=== PATIENT | female | born 1950 | race Caucasian/White ===

== ENCOUNTER 2020-12-21 23:35 | Inpatient (IN) ==
[2020-12-22] MEDS ORDERED: DOCUSATE SODIUM 100 MG CAPSULE PO PRN (05:16)
[2020-12-22] MEDS ORDERED: ONDANSETRON 4 MG/2 ML VIAL IV PRN (05:16)
[2020-12-22] MEDS ORDERED: ALBUTEROL 2.5 MG/3 ML NEB RESP TX PRN (05:16)
[2020-12-22] MEDS ORDERED: NOREPINEPHRINE 4 MG/4 ML VIAL IV ONE (05:35)
[2020-12-22] MEDS ORDERED: GLUCAGON 1 MG VIAL IM PRN ×2 (05:36→07:01)
[2020-12-22] MEDS ORDERED: DEXTROSE 50% 25 GM/50 ML VIAL IV PRN ×4 (05:36→07:01)
[2020-12-22 05:39] LABS: ABG Base Excess -22.2 MMOL/L (-2.5-2.5); ABG HCO3 8.2 MMOL/L (20-26); ABG Oxygen Saturation 97.9 % (95-100); ABG TCO2 5.1 MMOL/L (23-27)
[2020-12-22 05:41] LABS: ABG PCO2 14.7 MM HG (35-48); ABG PH 7.168 (7.35-7.45)
[2020-12-22] MEDS: NOREPINEPHRINE 8 MG in SODIUM CHLORIDE 0.9% 242 ML IV SCH (05:45)
[2020-12-22] MEDS ORDERED: SODIUM BICARB INJ 100 MEQ in SODIUM CHLORIDE 0.45% 1,000 ML IV SCH (06:00)
[2020-12-22 06:12] LABS: Basophils % 0.1 % (0.0-0.8); Eosinophils % 0.1 % (0.00-10.9); Hematocrit 25.7 VOL% (35.7-47.0); Hemoglobin 7.8 GM/DL (12.0-16.0); Immature Granulocytes % 0.6 %; Immature Granulocytes Absolute 0.11 #; Lymphocytes # 0.4 10*3/uL (1.4-4.0); Lymphocytes % 2.2 % (21.3-54.2); Mean Corpuscular HGB Conc 30.4 GM/DL (32-36); Mean Corpuscular Volume 92.8 FL (87-102); Mean Platelet Volume 9.6 FL (9.6-12.0); Monocytes % 2.7 % (1.7-12.7); Neutrophils % 94.3 % (38.7-73.9); Platelet Count 484 T/CUMM (130-400); Red Blood Count 2.77 MC/CUMM (3.8-5.5); Red Cell Distribution Width 16.7 % (9.3-17.3); White Blood Count 17.6 T/CUMM (4-12)
[2020-12-22 06:39] LABS: Alanine Aminotransferase < 9 U/L (13-56); Albumin 1.8 G/DL (3.4-5.0); Alkaline Phosphatase 82 U/L (45-117); Aspartate Amino Transferase 17 U/L (0-37); Blood Urea Nitrogen 93 MG/DL (7-18); Calcium 7.7 MG/DL (8.5-10.1); Carbon Dioxide 5 MMOL/L (21-32); Estimated Glom Filtration Rate 12 ML/MIN; Glucose 147 MG/DL (74-106); Osmolality,Calculated 297.4 MOS/KG (273-304); Potassium 4.5 MMOL/L (3.5-5.1); Sodium 133 MMOL/L (136-145); Total Protein 6.2 G/DL (6.4-8.3)
[2020-12-22] MEDS ORDERED: SODIUM CHLORIDE 0.9% 1,000 ML IV ONE (07:01)
[2020-12-22] MEDS ORDERED: SODIUM PHOSPHATE IV PRN (07:01)
[2020-12-22] MEDS ORDERED: MAGNESIUM SULF RIDER 4 GM in PREMIX 1 EACH IV PRN (07:01)
[2020-12-22] MEDS ORDERED: SODIUM BICARB INJ 100 MEQ in STERILE WATER INJ 400 ML IV PRN (07:01)
[2020-12-22] MEDS ORDERED: SODIUM CHLORIDE 0.9% IV PRN (07:01)
[2020-12-22] MEDS ORDERED: INSULIN REGULAR 100 UNIT/ML IV ONE (07:01)
[2020-12-22] MEDS ORDERED: SODIUM BICARBONATE 50 MEQ/50 ML VIAL IV ONE (07:05)
[2020-12-22 07:26] LABS: INR 1.1; PT Patient Result 11.8 SECS (9.8-11.9)
[2020-12-22] MEDS ORDERED: INSULIN LISPRO 100 UNIT/ML SUBCUT SCH (07:30)
[2020-12-22 07:44] LABS: Band Neutrophils 12 % (0-10); Eosinophils 1 % (0-10); Lymphocytes 2 % (20-55); Platelet Estimate Normal; Segmented Neutrophils 80 % (50-85); Total Cells Counted 100
[2020-12-22 07:45] LABS: Anisocytosis 1+; Burr Cells 2+
[2020-12-22 07:50] LABS: Bilirubin,Urine Negative (Negative); Blood, Urine Small mg/dL (Negative); Glucose,Urine (UA) 50 mg/dL (Negative); Hyaline Casts,Urine 70 /LPF (0-3); Ketones,Urine 5 mg/dL (Negative); Nitrite,Urine Negative (Negative); Protein,Urine 100 MG/DL; Squamous Epithelial Cell,Urine Few /HPF (0-10); Urine Appearance CLOUDY (Clear); Urine Color Yellow (Yellow); Urine Specific Gravity 1.012 (1.001-1.035); Urine Urobilinogen < 2.0 EU/DL (0.2-1.0); WBC,Urine 16148 /HPF (0-6)
[2020-12-22] MEDS: DEXTROSE 5% LACTATED RINGERS 1,000 ML IV SCH ×4 (07:50→20:01)
[2020-12-22] MEDS ORDERED: PIPERACILLIN/TAZOBACTAM 3,375 MG in SODIUM CHLORIDE 0.9% 100 ML IV SCH (08:00)
[2020-12-22] MEDS ORDERED: SODIUM CHLORIDE 0.9% 1,000 ML IV SCH ×2 (08:01→12:01)
[2020-12-22] MEDS: ENOXAPARIN 30 MG/0.3 ML SYRINGE SUBCUT SCH (08:13)
[2020-12-22] MEDS: PIPERACILLIN/TAZOBACTAM 3,375 MG in SODIUM CHLORIDE 0.9% 100 ML IV SCH ×2 (08:14→20:00)
[2020-12-22 08:53] LABS: Alanine Aminotransferase 9 U/L (13-56); Albumin 1.6 G/DL (3.4-5.0); Alkaline Phosphatase 73 U/L (45-117); Aspartate Amino Transferase 15 U/L (0-37); Bilirubin,Total < 0.39 MG/DL (0.2-1.0); Blood Urea Nitrogen 92 MG/DL (7-18); Calcium 7.3 MG/DL (8.5-10.1); Carbon Dioxide 12 MMOL/L (21-32); Estimated Glom Filtration Rate 13 ML/MIN; Glucose 183 MG/DL (74-106); Osmolality,Calculated 309.5 MOS/KG (273-304); Potassium 4.4 MMOL/L (3.5-5.1); Sodium 139 MMOL/L (136-145); Total Protein 5.5 G/DL (6.4-8.3)
[2020-12-22] MEDS: INSULIN REGULAR DRIP 100 ML IV SCH (09:19)
[2020-12-22 09:32] LABS: ABG Base Excess -15.4 MMOL/L (-2.5-2.5); ABG HCO3 9.8 MMOL/L (20-26); ABG PCO2 21.5 MM HG (35-48); ABG PH 7.277 (7.35-7.45); ABG TCO2 10.5 MMOL/L (23-27); Allen Test Positive; Pt O2 Delivery Device Ventilator
[2020-12-22 09:35] LABS: ABG PO2 28.4 MM HG (80-95)
[2020-12-22 09:55] LABS: ABG Base Excess -16.5 MMOL/L (-2.5-2.5); ABG HCO3 11.7 MMOL/L (20-26); ABG Oxygen Saturation 98.5 % (95-100); ABG PH 7.308 (7.35-7.45); ABG TCO2 8.3 MMOL/L (23-27)
[2020-12-22 10:00] LABS: ABG PCO2 17.4 MM HG (35-48)
[2020-12-22] MEDS: ACETAMINOPHEN 325 MG TABLET PO PRN (10:57)
[2020-12-22 12:02] LABS: Calcium 7.3 MG/DL (8.5-10.1); Osmolality,Calculated 306.5 MOS/KG (273-304); Potassium 3.3 MMOL/L (3.5-5.1)
[2020-12-22] MEDS: SODIUM CHLORIDE 23.4% CONC INJ 38.5 MEQ, SODIUM BICARB INJ 100 MEQ in STERILE WATER INJ... IV SCH ×2 (13:05→20:00)
[2020-12-22] MEDS: POTASSIUM CHLORIDE RIDER 20 MEQ in PREMIX 1 EACH IV PRN ×2 (13:05→14:57)
[2020-12-22] MEDS: MORPHINE 4 MG/1 ML VIAL IV PRN (14:21)
[2020-12-22 15:53] LABS: Calcium 7.1 MG/DL (8.5-10.1); Osmolality,Calculated 307.3 MOS/KG (273-304); Potassium 3.9 MMOL/L (3.5-5.1)
[2020-12-22 19:47] LABS: Calcium 6.9 MG/DL (8.5-10.1); Osmolality,Calculated 307.5 MOS/KG (273-304); Potassium 3.8 MMOL/L (3.5-5.1)
[2020-12-22 23:30] LABS: Calcium 7.2 MG/DL (8.5-10.1); Osmolality,Calculated 303.3 MOS/KG (273-304); Potassium 3.5 MMOL/L (3.5-5.1)
[2020-12-23] MEDS ORDERED: SODIUM CHLORIDE 0.45% 1,000 ML IV SCH (00:01)
[2020-12-23] MEDS: DEXTROSE 5% LACTATED RINGERS 1,000 ML IV SCH ×2 (02:49→09:18)
[2020-12-23] MEDS: SODIUM CHLORIDE 23.4% CONC INJ 38.5 MEQ, SODIUM BICARB INJ 100 MEQ in STERILE WATER INJ... IV SCH ×3 (02:50→19:56)
[2020-12-23 04:27] LABS: Basophils % 0.1 % (0.0-0.8); Hematocrit 18.9 VOL% (35.7-47.0); Immature Granulocytes % 0.7 %; Immature Granulocytes Absolute 0.11 #; Lymphocytes # 0.3 10*3/uL (1.4-4.0); Lymphocytes % 2.2 % (21.3-54.2); Mean Corpuscular HGB Conc 32.8 GM/DL (32-36); Mean Corpuscular Volume 86.7 FL (87-102); Mean Platelet Volume 9.9 FL (9.6-12.0); Monocytes % 5.7 % (1.7-12.7); Neutrophils % 91.3 % (38.7-73.9); Platelet Count 394 T/CUMM (130-400); Red Blood Count 2.18 MC/CUMM (3.8-5.5); Red Cell Distribution Width 16.7 % (9.3-17.3)
[2020-12-23 04:30] LABS: Hemoglobin 6.2 GM/DL (12.0-16.0)
[2020-12-23 04:51] LABS: Band Neutrophils 1 % (0-10); Hypochromasia 2+; Lymphocytes 5 % (20-55); Microcytosis 1+; Ovalocytes Slight; Platelet Estimate Adequate; Segmented Neutrophils 91 % (50-85); Total Cells Counted 100
[2020-12-23 04:54] LABS: Albumin 1.3 G/DL (3.4-5.0); Bilirubin,Total 0.6 MG/DL (0.2-1.0); Calcium 6.9 MG/DL (8.5-10.1); Osmolality,Calculated 304.1 MOS/KG (273-304); Potassium 3.1 MMOL/L (3.5-5.1)
[2020-12-23] MEDS ORDERED: SODIUM CHLORIDE 0.9% 1,000 ML IV PRN (04:54)
[2020-12-23] MEDS: POTASSIUM CHLORIDE RIDER 10 MEQ in PREMIX 1 EACH IV PRN (05:30)
[2020-12-23] MEDS: MAGNESIUM SULF RIDER 2 GM in PREMIX 1 EACH IV PRN (05:31)
[2020-12-23] MEDS: NOREPINEPHRINE 8 MG in SODIUM CHLORIDE 0.9% 242 ML IV SCH (05:40)
[2020-12-23] MEDS: INSULIN REGULAR DRIP 100 ML IV SCH (06:26)
[2020-12-23] MEDS: POTASSIUM CHLORIDE RIDER 20 MEQ in PREMIX 1 EACH IV PRN ×2 (07:04→08:59)
[2020-12-23] MEDS: ENOXAPARIN 30 MG/0.3 ML SYRINGE SUBCUT SCH (08:59)
[2020-12-23] MEDS: PIPERACILLIN/TAZOBACTAM 3,375 MG in SODIUM CHLORIDE 0.9% 100 ML IV SCH (09:07)
[2020-12-23] MEDS ORDERED: cefTRIAXone 1,000 MG in SYRINGE 1 EACH IV SCH (11:00)
[2020-12-23] MEDS ORDERED: INSULIN REGULAR 100 UNIT/ML SUBCUT SCH (14:00)
[2020-12-23] MEDS: metroNIDAZOLE INJ 500 MG in PREMIX 1 EACH IV SCH ×2 (15:15→22:17)
[2020-12-23] MEDS: VANCOMYCIN 50 MG/ML 60 ML/BOTTLE PO SCH ×3 (15:45→23:07)
[2020-12-23] MEDS ORDERED: ALBUTEROL/IPRATROPIUM 3 ML NEB RESP TX PRN (17:03)
[2020-12-23] MEDS ORDERED: POLYETHYLENE GLYCOL POWDER 17 GM PACK PO PRN (17:03)
[2020-12-23] MEDS: INSULIN REGULAR 100 UNIT/ML SUBCUT SCH ×4 (17:33→23:15)
[2020-12-23 17:50] LABS: Hematocrit 29.1 VOL% (35.7-47.0); Hemoglobin 10.1 GM/DL (12.0-16.0)
[2020-12-23] MEDS: MORPHINE 4 MG/1 ML VIAL IV PRN ×2 (19:55→23:16)
[2020-12-23] MEDS: BACLOFEN 10 MG TABLET PO SCH (20:02)
[2020-12-23] MEDS: DONEPEZIL 10 MG TABLET PO SCH (20:02)
[2020-12-24 04:49] LABS: Basophils % 0.1 % (0.0-0.8); Eosinophils % 0.1 % (0.00-10.9); Hematocrit 29.1 VOL% (35.7-47.0); Hemoglobin 9.8 GM/DL (12.0-16.0); Immature Granulocytes % 0.8 %; Immature Granulocytes Absolute 0.13 #; Lymphocytes # 0.7 10*3/uL (1.4-4.0); Lymphocytes % 4.1 % (21.3-54.2); Mean Corpuscular HGB Conc 33.7 GM/DL (32-36); Mean Corpuscular Volume 84.1 FL (87-102); Mean Platelet Volume 9.9 FL (9.6-12.0); Monocytes % 5.6 % (1.7-12.7); Neutrophils % 89.3 % (38.7-73.9); Platelet Count 457 T/CUMM (130-400); Red Blood Count 3.46 MC/CUMM (3.8-5.5); Red Cell Distribution Width 15.8 % (9.3-17.3); White Blood Count 16.7 T/CUMM (4-12)
[2020-12-24 04:57] LABS: Albumin 1.3 G/DL (3.4-5.0); Bilirubin,Total 1.2 MG/DL (0.2-1.0); Calcium 7.2 MG/DL (8.5-10.1); Osmolality,Calculated 299.1 MOS/KG (273-304); Potassium 2.7 MMOL/L (3.5-5.1); Total Protein 5.4 G/DL (6.4-8.3)
[2020-12-24] MEDS: MORPHINE 4 MG/1 ML VIAL IV PRN ×2 (05:04→11:15)
[2020-12-24] MEDS: INSULIN REGULAR 100 UNIT/ML SUBCUT SCH ×6 (05:09→23:56)
[2020-12-24] MEDS: NOREPINEPHRINE 8 MG in SODIUM CHLORIDE 0.9% 242 ML IV SCH (05:09)
[2020-12-24 05:19] LABS: Burr Cells Slight; Hypochromasia 1+; Microcytosis 1+; Ovalocytes Slight; Platelet Estimate Adequate
[2020-12-24] MEDS: POTASSIUM CHLORIDE RIDER 20 MEQ in PREMIX 1 EACH IV PRN ×2 (05:24→09:53)
[2020-12-24] MEDS: metroNIDAZOLE INJ 500 MG in PREMIX 1 EACH IV SCH ×3 (05:30→23:37)
[2020-12-24] MEDS: VANCOMYCIN 50 MG/ML 60 ML/BOTTLE PO SCH ×4 (05:30→23:56)
[2020-12-24] MEDS: SODIUM CHLORIDE 23.4% CONC INJ 38.5 MEQ, SODIUM BICARB INJ 100 MEQ in STERILE WATER INJ... IV SCH ×2 (07:30→18:55)
[2020-12-24] MEDS ORDERED: ISOSORBIDE MONONITRATE 30 MG TABLET PO SCH (09:00)
[2020-12-24] MEDS: DULoxetine 30 MG CAPSULE PO SCH (09:54)
[2020-12-24] MEDS: ENOXAPARIN 30 MG/0.3 ML SYRINGE SUBCUT SCH (09:54)
[2020-12-24] MEDS: carvediloL 6.25 MG TABLET PO SCH ×2 (09:54→20:34)
[2020-12-24] MEDS: lisinopriL 20 MG TABLET PO SCH ×2 (09:54→20:34)
[2020-12-24] MEDS: ATORVASTATIN 40 MG TABLET PO SCH (09:54)
[2020-12-24] MEDS: ASPIRIN EC 81 MG TABLET PO SCH ×2 (09:54→10:19)
[2020-12-24] MEDS: BACLOFEN 10 MG TABLET PO SCH ×2 (09:54→20:35)
[2020-12-24] MEDS: PANTOPRAZOLE 40 MG VIAL IV SCH (09:54)
[2020-12-24] MEDS: CLOPIDOGREL 75 MG TABLET PO SCH (09:54)
[2020-12-24] MEDS ORDERED: GENTAMICIN INJ 160 MG in SODIUM CHLORIDE 0.9% 100 ML IV ONE (11:00)
[2020-12-24] MEDS: ASPIRIN CHEW 81 MG TABLET PO SCH (11:16)
[2020-12-24] MEDS: POTASSIUM CHLORIDE RIDER 10 MEQ in PREMIX 1 EACH IV PRN (11:55)
[2020-12-24] MEDS ORDERED: hydrALAZINE 20 MG/1 ML VIAL IV PRN (14:23)
[2020-12-24] MEDS: ISOSORBIDE MONONITRATE 20 MG TABLET PO SCH ×2 (15:34→20:34)
[2020-12-24] MEDS: fentaNYL 25 MCG/HR PATCH TRANSDERM SCH (16:48)
[2020-12-24] MEDS: POTASSIUM CHLORIDE 20 MEQ/15 ML UDCUP PER TUBE PRN (18:02)
[2020-12-24] MEDS: CHOLESTYRAMINE/ASPARTAME 4 GM PACK PO SCH (20:34)
[2020-12-24] MEDS: DONEPEZIL 10 MG TABLET PO SCH (20:35)
[2020-12-25] MEDS: SODIUM CHLORIDE 23.4% CONC INJ 38.5 MEQ, SODIUM BICARB INJ 100 MEQ in STERILE WATER INJ... IV SCH ×3 (02:16→10:18)
[2020-12-25 04:16] LABS: Basophils % 0.1 % (0.0-0.8); Eosinophils % 0.3 % (0.00-10.9); Hematocrit 27.9 VOL% (35.7-47.0); Hemoglobin 9.3 GM/DL (12.0-16.0); Immature Granulocytes % 0.9 %; Immature Granulocytes Absolute 0.12 #; Lymphocytes # 0.8 10*3/uL (1.4-4.0); Lymphocytes % 6.2 % (21.3-54.2); Mean Corpuscular HGB Conc 33.3 GM/DL (32-36); Mean Corpuscular Volume 86.1 FL (87-102); Mean Platelet Volume 9.5 FL (9.6-12.0); Monocytes % 5.9 % (1.7-12.7); Neutrophils % 86.6 % (38.7-73.9); Platelet Count 385 T/CUMM (130-400); Red Blood Count 3.24 MC/CUMM (3.8-5.5); Red Cell Distribution Width 16.3 % (9.3-17.3); White Blood Count 13.1 T/CUMM (4-12)
[2020-12-25] MEDS: POTASSIUM CHLORIDE 20 MEQ/15 ML UDCUP PER TUBE PRN ×4 (04:30→14:11)
[2020-12-25 04:37] LABS: Albumin 1.2 G/DL (3.4-5.0); Bilirubin,Total 0.6 MG/DL (0.2-1.0); Calcium 7.6 MG/DL (8.5-10.1); Osmolality,Calculated 297.1 MOS/KG (273-304); Potassium 3.1 MMOL/L (3.5-5.1)
[2020-12-25] MEDS: metroNIDAZOLE INJ 500 MG in PREMIX 1 EACH IV SCH (05:40)
[2020-12-25] MEDS: INSULIN REGULAR 100 UNIT/ML SUBCUT SCH ×4 (05:40→17:59)
[2020-12-25] MEDS: VANCOMYCIN 50 MG/ML 60 ML/BOTTLE PO SCH ×3 (05:40→19:25)
[2020-12-25] MEDS: LACTOBACILLUS ACIDOPHILUS/BULGARICUS CAPLET PO SCH (08:12)
[2020-12-25] MEDS: lisinopriL 20 MG TABLET PO SCH ×2 (08:12→21:09)
[2020-12-25] MEDS: DULoxetine 30 MG CAPSULE PO SCH (08:13)
[2020-12-25] MEDS: CHOLESTYRAMINE/ASPARTAME 4 GM PACK PO SCH (08:13)
[2020-12-25] MEDS: carvediloL 6.25 MG TABLET PO SCH ×2 (08:13→21:09)
[2020-12-25] MEDS: ENOXAPARIN 30 MG/0.3 ML SYRINGE SUBCUT SCH (08:13)
[2020-12-25] MEDS: ATORVASTATIN 40 MG TABLET PO SCH (08:13)
[2020-12-25] MEDS: CLOPIDOGREL 75 MG TABLET PO SCH (08:13)
[2020-12-25] MEDS: PANTOPRAZOLE 40 MG VIAL IV SCH (08:13)
[2020-12-25] MEDS: ASPIRIN CHEW 81 MG TABLET PO SCH (08:13)
[2020-12-25] MEDS: BACLOFEN 10 MG TABLET PO SCH ×2 (08:13→21:08)
[2020-12-25] MEDS: ISOSORBIDE MONONITRATE 20 MG TABLET PO SCH ×3 (08:13→21:09)
[2020-12-25] MEDS ORDERED: NON-FORMULARY MEDICATION (Bacillus Coagulan-Calcium Carb [Digestive Advantage Probiotic] 2 PO SCH (09:00)
[2020-12-25] MEDS ORDERED: GENTAMICIN INJ 120 MG in PREMIX 1 EACH IV SCH (11:00)
[2020-12-25] MEDS: metroNIDAZOLE 500 MG TABLET PO SCH (21:09)
[2020-12-25] MEDS: DONEPEZIL 10 MG TABLET PO SCH (21:09)
[2020-12-26] MEDS: MORPHINE 4 MG/1 ML VIAL IV PRN ×2 (00:02→22:51)
[2020-12-26 00:25] LABS: Basophils % 0.1 % (0.0-0.8); Eosinophils % 0.1 % (0.00-10.9); Hematocrit 24.1 VOL% (35.7-47.0); Hemoglobin 7.8 GM/DL (12.0-16.0); Immature Granulocytes % 0.7 %; Immature Granulocytes Absolute 0.09 #; Lymphocytes # 0.5 10*3/uL (1.4-4.0); Mean Corpuscular HGB Conc 32.4 GM/DL (32-36); Mean Corpuscular Volume 88.9 FL (87-102); Mean Platelet Volume 9.9 FL (9.6-12.0); Monocytes % 5.6 % (1.7-12.7); Neutrophils % 89.5 % (38.7-73.9); Platelet Count 278 T/CUMM (130-400); Red Blood Count 2.71 MC/CUMM (3.8-5.5); Red Cell Distribution Width 16.6 % (9.3-17.3); White Blood Count 12.8 T/CUMM (4-12)
[2020-12-26 00:49] LABS: Calcium 7.8 MG/DL (8.5-10.1); Lymphocytes 4 % (20-55); Osmolality,Calculated 300.7 MOS/KG (273-304); Potassium 3.8 MMOL/L (3.5-5.1); Segmented Neutrophils 93 % (50-85); Total Cells Counted 100
[2020-12-26 00:52] LABS: Platelet Estimate Normal
[2020-12-26] MEDS: INSULIN REGULAR 100 UNIT/ML SUBCUT SCH ×4 (01:13→17:46)
[2020-12-26] MEDS: VANCOMYCIN 50 MG/ML 60 ML/BOTTLE PO SCH ×4 (01:13→17:33)
[2020-12-26 01:18] LABS: Anisocytosis Slight; Hypochromasia Slight; Microcytosis 1+
[2020-12-26 01:19] LABS: Ovalocytes Slight
[2020-12-26 03:52] LABS: Bilirubin,Urine Negative (Negative); Blood, Urine Negative (Negative); Glucose,Urine (UA) 50 mg/dL (Negative); Ketones,Urine Negative (Negative); Nitrite,Urine Negative (Negative); Protein,Urine 100 MG/DL; RBC,Urine 4 /HPF (0-4); Squamous Epithelial Cell,Urine Occasional /HPF (0-10); Urine Appearance CLEAR (Clear); Urine Color Yellow (Yellow); Urine Specific Gravity 1.008 (1.001-1.035); Urine Urobilinogen < 2.0 EU/DL (0.2-1.0); WBC,Urine 4 /HPF (0-6)
[2020-12-26 04:37] LABS: Basophils % 0.1 % (0.0-0.8); Hemoglobin 9.5 GM/DL (12.0-16.0); Immature Granulocytes % 0.6 %; Immature Granulocytes Absolute 0.09 #; Lymphocytes # 0.8 10*3/uL (1.4-4.0); Lymphocytes % 5.9 % (21.3-54.2); Mean Corpuscular HGB Conc 31.7 GM/DL (32-36); Mean Corpuscular Volume 89.8 FL (87-102); Mean Platelet Volume 9.9 FL (9.6-12.0); Neutrophils % 87.4 % (38.7-73.9); Platelet Count 336 T/CUMM (130-400); Red Blood Count 3.34 MC/CUMM (3.8-5.5); Red Cell Distribution Width 16.5 % (9.3-17.3); White Blood Count 13.9 T/CUMM (4-12)
[2020-12-26 05:04] LABS: Calcium 7.7 MG/DL (8.5-10.1); Osmolality,Calculated 302.6 MOS/KG (273-304); Potassium 3.5 MMOL/L (3.5-5.1)
[2020-12-26 07:00] LABS: Troponin I 0.027 NG/ML (0.00-0.045)
[2020-12-26] MEDS: CHOLESTYRAMINE/ASPARTAME 4 GM PACK PO SCH (09:20)
[2020-12-26] MEDS: ISOSORBIDE MONONITRATE 20 MG TABLET PO SCH ×3 (09:20→20:44)
[2020-12-26] MEDS: lisinopriL 20 MG TABLET PO SCH ×2 (09:20→20:49)
[2020-12-26] MEDS: CLOPIDOGREL 75 MG TABLET PO SCH (09:21)
[2020-12-26] MEDS: LACTOBACILLUS ACIDOPHILUS/BULGARICUS CAPLET PO SCH (09:21)
[2020-12-26] MEDS: carvediloL 6.25 MG TABLET PO SCH ×2 (09:21→20:44)
[2020-12-26] MEDS: DULoxetine 30 MG CAPSULE PO SCH (09:21)
[2020-12-26] MEDS: ATORVASTATIN 40 MG TABLET PO SCH (09:21)
[2020-12-26] MEDS: ASPIRIN CHEW 81 MG TABLET PO SCH (09:21)
[2020-12-26] MEDS: BACLOFEN 10 MG TABLET PO SCH ×2 (09:21→20:44)
[2020-12-26] MEDS: ENOXAPARIN 40 MG/0.4 ML SYRINGE SUBCUT SCH (09:22)
[2020-12-26] MEDS: PANTOPRAZOLE 40 MG VIAL IV SCH (09:22)
[2020-12-26] MEDS: metroNIDAZOLE 500 MG TABLET PO SCH ×2 (09:23→20:44)
[2020-12-26] MEDS ORDERED: MAGNESIUM SULF RIDER 4 GM in PREMIX 1 EACH IV PRN (09:23)
[2020-12-26] MEDS ORDERED: MAGNESIUM SULF RIDER 2 GM in PREMIX 1 EACH IV PRN (09:23)
[2020-12-26] MEDS ORDERED: MAGNESIUM SULF RIDER 2 GM in PREMIX 1 EACH IV ONE (11:00)
[2020-12-26] MEDS: ERTAPENEM 1,000 MG in SODIUM CHLORIDE 0.9% 100 ML IV SCH (12:30)
[2020-12-26 12:33] LABS: Troponin I 0.052 NG/ML (0.00-0.045)
[2020-12-26 18:54] LABS: Folate 4.6 NG/ML (5.38-24.0)
[2020-12-26 18:56] LABS: HDL Cholesterol 26 MG/DL (40-60); Risk Ratio 1.92; Triglycerides 77 MG/DL (2-150); VLDL CHOLESTEROL 15.4 MG/DL
[2020-12-27] MEDS: INSULIN REGULAR 100 UNIT/ML SUBCUT SCH ×4 (00:36→18:05)
[2020-12-27] MEDS: VANCOMYCIN 50 MG/ML 60 ML/BOTTLE PO SCH ×4 (00:37→18:05)
[2020-12-27 06:52] LABS: Basophils % 0.1 % (0.0-0.8); Eosinophils # 0.1 10*3/uL (0.0-0.87); Hematocrit 31.2 VOL% (35.7-47.0); Hemoglobin 9.7 GM/DL (12.0-16.0); Immature Granulocytes % 0.6 %; Immature Granulocytes Absolute 0.07 #; Lymphocytes # 1.3 10*3/uL (1.4-4.0); Lymphocytes % 11.5 % (21.3-54.2); Mean Corpuscular HGB Conc 31.1 GM/DL (32-36); Mean Platelet Volume 10.4 FL (9.6-12.0); Monocytes % 8.5 % (1.7-12.7); Neutrophils % 78.3 % (38.7-73.9); Platelet Count 297 T/CUMM (130-400); Red Blood Count 3.39 MC/CUMM (3.8-5.5); Red Cell Distribution Width 16.5 % (9.3-17.3); White Blood Count 11.2 T/CUMM (4-12)
[2020-12-27 07:06] LABS: Calcium 8.1 MG/DL (8.5-10.1)
[2020-12-27] MEDS: ACETAMINOPHEN 325 MG TABLET PO PRN ×2 (09:45→12:43)
[2020-12-27] MEDS: metroNIDAZOLE 500 MG TABLET PO SCH ×3 (09:46→21:57)
[2020-12-27] MEDS: ISOSORBIDE MONONITRATE 20 MG TABLET PO SCH ×4 (09:46→21:56)
[2020-12-27] MEDS: CHOLESTYRAMINE/ASPARTAME 4 GM PACK PO SCH ×2 (09:46→12:44)
[2020-12-27] MEDS: ENOXAPARIN 40 MG/0.4 ML SYRINGE SUBCUT SCH (09:47)
[2020-12-27] MEDS: ERTAPENEM 1,000 MG in SODIUM CHLORIDE 0.9% 100 ML IV SCH (09:47)
[2020-12-27] MEDS: fentaNYL 25 MCG/HR PATCH TRANSDERM SCH (09:47)
[2020-12-27] MEDS: PANTOPRAZOLE 40 MG VIAL IV SCH (09:48)
[2020-12-27] MEDS: ASPIRIN CHEW 81 MG TABLET PO SCH ×2 (09:48→12:44)
[2020-12-27] MEDS: DULoxetine 30 MG CAPSULE PO SCH ×2 (09:48→12:44)
[2020-12-27] MEDS: lisinopriL 20 MG TABLET PO SCH ×3 (09:48→21:57)
[2020-12-27] MEDS: LACTOBACILLUS ACIDOPHILUS/BULGARICUS CAPLET PO SCH ×2 (09:48→12:44)
[2020-12-27] MEDS: ATORVASTATIN 40 MG TABLET PO SCH ×2 (09:48→12:44)
[2020-12-27] MEDS: BACLOFEN 10 MG TABLET PO SCH ×3 (09:49→22:00)
[2020-12-27] MEDS: CLOPIDOGREL 75 MG TABLET PO SCH ×2 (09:49→12:44)
[2020-12-27] MEDS: carvediloL 6.25 MG TABLET PO SCH ×3 (09:49→21:57)
[2020-12-27] MEDS: POTASSIUM CHLORIDE RIDER 10 MEQ in PREMIX 1 EACH IV PRN ×4 (11:25→16:00)
[2020-12-27] MEDS: FOLIC ACID 1 MG TABLET PO SCH (21:57)
[2020-12-28] MEDS: INSULIN REGULAR 100 UNIT/ML SUBCUT SCH ×4 (00:14→18:52)
[2020-12-28] MEDS: VANCOMYCIN 50 MG/ML 60 ML/BOTTLE PO SCH ×4 (00:15→18:53)
[2020-12-28] MEDS: PANTOPRAZOLE 40 MG VIAL IV SCH (09:59)
[2020-12-28] MEDS: ASPIRIN CHEW 81 MG TABLET PO SCH (10:00)
[2020-12-28] MEDS: DULoxetine 30 MG CAPSULE PO SCH (10:00)
[2020-12-28] MEDS: ENOXAPARIN 40 MG/0.4 ML SYRINGE SUBCUT SCH (10:00)
[2020-12-28] MEDS: lisinopriL 20 MG TABLET PO SCH ×2 (10:00→21:17)
[2020-12-28] MEDS: carvediloL 6.25 MG TABLET PO SCH ×2 (10:00→21:17)
[2020-12-28] MEDS: BACLOFEN 10 MG TABLET PO SCH ×2 (10:00→21:18)
[2020-12-28] MEDS: LACTOBACILLUS ACIDOPHILUS/BULGARICUS CAPLET PO SCH (10:00)
[2020-12-28] MEDS: FOLIC ACID 1 MG TABLET PO SCH ×2 (10:00→21:18)
[2020-12-28] MEDS: CLOPIDOGREL 75 MG TABLET PO SCH (10:01)
[2020-12-28] MEDS: ATORVASTATIN 40 MG TABLET PO SCH (10:01)
[2020-12-28] MEDS: CHOLESTYRAMINE/ASPARTAME 4 GM PACK PO SCH (10:04)
[2020-12-28] MEDS: metroNIDAZOLE 500 MG TABLET PO SCH ×2 (10:04→21:17)
[2020-12-28] MEDS: ISOSORBIDE MONONITRATE 20 MG TABLET PO SCH ×3 (10:04→21:16)
[2020-12-28] MEDS: ERTAPENEM 1,000 MG in SODIUM CHLORIDE 0.9% 100 ML IV SCH (10:35)
[2020-12-28 10:48] LABS: Calcium 8.1 MG/DL (8.5-10.1); Osmolality,Calculated 294.8 MOS/KG (273-304)
[2020-12-28] MEDS: VANCOMYCIN INJ 1,000 MG in SODIUM CHLORIDE 0.9% 250 ML IV SCH (12:18)
[2020-12-28] MEDS ORDERED: POTASSIUM CHLORIDE INJ 50 MEQ in SODIUM CHLORIDE 0.9% 500 ML IV ONE (15:00)
[2020-12-28] MEDS: QUEtiapine 25 MG TABLET PO SCH (21:30)
[2020-12-29] MEDS: VANCOMYCIN INJ 1,000 MG in SODIUM CHLORIDE 0.9% 250 ML IV SCH ×3 (00:03→23:50)
[2020-12-29] MEDS: INSULIN REGULAR 100 UNIT/ML SUBCUT SCH ×5 (00:12→23:49)
[2020-12-29] MEDS: VANCOMYCIN 50 MG/ML 60 ML/BOTTLE PO SCH ×5 (05:26→23:50)
[2020-12-29 07:52] LABS: Basophils % 0.1 % (0.0-0.8); Eosinophils # 0.2 10*3/uL (0.0-0.87); Eosinophils % 2.6 % (0.00-10.9); Hematocrit 26.9 VOL% (35.7-47.0); Hemoglobin 8.1 GM/DL (12.0-16.0); Immature Granulocytes % 0.8 %; Immature Granulocytes Absolute 0.07 #; Lymphocytes # 1.9 10*3/uL (1.4-4.0); Mean Corpuscular HGB Conc 30.1 GM/DL (32-36); Mean Corpuscular Volume 93.4 FL (87-102); Mean Platelet Volume 10.9 FL (9.6-12.0); Monocytes % 7.9 % (1.7-12.7); Neutrophils % 67.6 % (38.7-73.9); Platelet Count 229 T/CUMM (130-400); Red Blood Count 2.88 MC/CUMM (3.8-5.5); Red Cell Distribution Width 16.2 % (9.3-17.3); White Blood Count 8.9 T/CUMM (4-12)
[2020-12-29 08:10] LABS: Alanine Aminotransferase < 9 U/L (13-56); Albumin 1.3 G/DL (3.4-5.0); Alkaline Phosphatase 59 U/L (45-117); Aspartate Amino Transferase 16 U/L (0-37); Bilirubin,Total < 0.39 MG/DL (0.2-1.0); Blood Urea Nitrogen 19 MG/DL (7-18); Calcium 7.3 MG/DL (8.5-10.1); Carbon Dioxide 28 MMOL/L (21-32); Estimated Glom Filtration Rate 93 ML/MIN; Glucose 124 MG/DL (74-106); Osmolality,Calculated 281.4 MOS/KG (273-304); Potassium 3.3 MMOL/L (3.5-5.1); Sodium 140 MMOL/L (136-145); Total Protein 4.7 G/DL (6.4-8.3)
[2020-12-29] MEDS: ERTAPENEM 1,000 MG in SODIUM CHLORIDE 0.9% 100 ML IV SCH (09:39)
[2020-12-29] MEDS: POTASSIUM CHLORIDE 20 MEQ/15 ML UDCUP PER TUBE PRN ×3 (09:39→14:39)
[2020-12-29] MEDS: metroNIDAZOLE 500 MG TABLET PO SCH ×2 (09:40→21:12)
[2020-12-29] MEDS: ASPIRIN CHEW 81 MG TABLET PO SCH (09:40)
[2020-12-29] MEDS: LACTOBACILLUS ACIDOPHILUS/BULGARICUS CAPLET PO SCH (09:40)
[2020-12-29] MEDS: DULoxetine 30 MG CAPSULE PO SCH (09:40)
[2020-12-29] MEDS: ATORVASTATIN 40 MG TABLET PO SCH (09:40)
[2020-12-29] MEDS: CHOLESTYRAMINE/ASPARTAME 4 GM PACK PO SCH (09:40)
[2020-12-29] MEDS: CLOPIDOGREL 75 MG TABLET PO SCH (09:40)
[2020-12-29] MEDS: BACLOFEN 10 MG TABLET PO SCH ×2 (09:40→21:12)
[2020-12-29] MEDS: FOLIC ACID 1 MG TABLET PO SCH ×2 (09:40→21:12)
[2020-12-29] MEDS: lisinopriL 20 MG TABLET PO SCH ×2 (09:40→21:12)
[2020-12-29] MEDS: ISOSORBIDE MONONITRATE 20 MG TABLET PO SCH ×3 (09:41→21:12)
[2020-12-29] MEDS: ENOXAPARIN 40 MG/0.4 ML SYRINGE SUBCUT SCH (09:41)
[2020-12-29] MEDS: PANTOPRAZOLE 40 MG VIAL IV SCH (09:41)
[2020-12-29] MEDS: carvediloL 6.25 MG TABLET PO SCH ×2 (09:41→21:12)
[2020-12-29 11:54] LABS: Calcium 7.4 MG/DL (8.5-10.1); Osmolality,Calculated 285.3 MOS/KG (273-304); Potassium 3.5 MMOL/L (3.5-5.1)
[2020-12-29] MEDS: MAGNESIUM SULF RIDER 2 GM in PREMIX 1 EACH IV PRN (13:58)
[2020-12-29] MEDS: traMADol 50 MG TABLET PO PRN (14:36)
[2020-12-29] MEDS: MORPHINE 4 MG/1 ML VIAL IV PRN (18:20)
[2020-12-29] MEDS: QUEtiapine 25 MG TABLET PO SCH (21:11)
[2020-12-30] MEDS: MORPHINE 4 MG/1 ML VIAL IV PRN (01:05)
[2020-12-30] MEDS: INSULIN REGULAR 100 UNIT/ML SUBCUT SCH ×3 (05:05→17:14)
[2020-12-30] MEDS: VANCOMYCIN 50 MG/ML 60 ML/BOTTLE PO SCH ×3 (05:05→17:14)
[2020-12-30 06:08] LABS: Basophils % 0.2 % (0.0-0.8); Eosinophils # 0.2 10*3/uL (0.0-0.87); Eosinophils % 2.3 % (0.00-10.9); Hematocrit 26.2 VOL% (35.7-47.0); Hemoglobin 8.1 GM/DL (12.0-16.0); Immature Granulocytes % 0.7 %; Immature Granulocytes Absolute 0.06 #; Lymphocytes # 1.7 10*3/uL (1.4-4.0); Lymphocytes % 19.9 % (21.3-54.2); Mean Corpuscular HGB Conc 30.9 GM/DL (32-36); Mean Corpuscular Volume 92.3 FL (87-102); Mean Platelet Volume 11.3 FL (9.6-12.0); Monocytes % 8.1 % (1.7-12.7); Neutrophils % 68.8 % (38.7-73.9); Platelet Count 219 T/CUMM (130-400); Red Blood Count 2.84 MC/CUMM (3.8-5.5); Red Cell Distribution Width 16.2 % (9.3-17.3); White Blood Count 8.7 T/CUMM (4-12)
[2020-12-30 06:52] LABS: Alanine Aminotransferase < 9 U/L (13-56); Albumin 1.4 G/DL (3.4-5.0); Alkaline Phosphatase 54 U/L (45-117); Aspartate Amino Transferase 15 U/L (0-37); Blood Urea Nitrogen 20 MG/DL (7-18); Calcium 7.4 MG/DL (8.5-10.1); Carbon Dioxide 25 MMOL/L (21-32); Estimated Glom Filtration Rate 75 ML/MIN; Glucose 103 MG/DL (74-106); Osmolality,Calculated 281.4 MOS/KG (273-304); Potassium 4.1 MMOL/L (3.5-5.1); Sodium 140 MMOL/L (136-145); Total Protein 4.7 G/DL (6.4-8.3)
[2020-12-30] MEDS: ASPIRIN CHEW 81 MG TABLET PO SCH (09:29)
[2020-12-30] MEDS: LACTOBACILLUS ACIDOPHILUS/BULGARICUS CAPLET PO SCH (09:30)
[2020-12-30] MEDS: ISOSORBIDE MONONITRATE 20 MG TABLET PO SCH ×3 (09:31→20:53)
[2020-12-30] MEDS: metroNIDAZOLE 500 MG TABLET PO SCH ×2 (09:31→20:54)
[2020-12-30] MEDS: carvediloL 6.25 MG TABLET PO SCH ×2 (09:31→20:53)
[2020-12-30] MEDS: DULoxetine 30 MG CAPSULE PO SCH (09:31)
[2020-12-30] MEDS: lisinopriL 20 MG TABLET PO SCH ×2 (09:31→20:53)
[2020-12-30] MEDS: ATORVASTATIN 40 MG TABLET PO SCH (09:32)
[2020-12-30] MEDS: BACLOFEN 10 MG TABLET PO SCH ×2 (09:32→20:53)
[2020-12-30] MEDS: CLOPIDOGREL 75 MG TABLET PO SCH (09:32)
[2020-12-30] MEDS: fentaNYL 25 MCG/HR PATCH TRANSDERM SCH (09:33)
[2020-12-30] MEDS: FOLIC ACID 1 MG TABLET PO SCH ×2 (09:33→20:53)
[2020-12-30] MEDS: ENOXAPARIN 40 MG/0.4 ML SYRINGE SUBCUT SCH (09:42)
[2020-12-30] MEDS: CHOLESTYRAMINE/ASPARTAME 4 GM PACK PO SCH (09:44)
[2020-12-30] MEDS: PANTOPRAZOLE 40 MG VIAL IV SCH (10:09)
[2020-12-30] MEDS: ERTAPENEM 1,000 MG in SODIUM CHLORIDE 0.9% 100 ML IV SCH (10:15)
[2020-12-30] MEDS: VANCOMYCIN INJ 1,000 MG in SODIUM CHLORIDE 0.9% 250 ML IV SCH (13:56)
[2020-12-30] MEDS: traMADol 50 MG TABLET PO PRN (14:32)
[2020-12-30] MEDS: TAMSULOSIN 0.4 MG CAPSULE PO SCH (20:53)
[2020-12-30] MEDS: QUEtiapine 25 MG TABLET PO SCH (20:54)
[2020-12-30] MEDS: DESITIN 4OZ/NYSTATIN 15 GRAM MIXTURE PASTE TOP SCH (20:57)
[2020-12-30] MEDS: CARBIDOPA/LEVODOPA 25-100 MG TABLET PO SCH (20:57)
[2020-12-31] MEDS ORDERED: VANCOMYCIN INJ 1,000 MG in SODIUM CHLORIDE 0.9% 250 ML IV SCH
[2020-12-31] MEDS: VANCOMYCIN 50 MG/ML 60 ML/BOTTLE PO SCH ×4 (00:30→18:44)
[2020-12-31] MEDS: INSULIN REGULAR 100 UNIT/ML SUBCUT SCH ×5 (01:40→21:00)
[2020-12-31 08:42] LABS: Basophils % 0.1 % (0.0-0.8); Eosinophils # 0.1 10*3/uL (0.0-0.87); Eosinophils % 1.5 % (0.00-10.9); Hematocrit 26.5 VOL% (35.7-47.0); Hemoglobin 8.4 GM/DL (12.0-16.0); Immature Granulocytes % 0.9 %; Immature Granulocytes Absolute 0.07 #; Lymphocytes # 1.4 10*3/uL (1.4-4.0); Lymphocytes % 17.3 % (21.3-54.2); Mean Corpuscular HGB Conc 31.7 GM/DL (32-36); Mean Corpuscular Volume 89.8 FL (87-102); Mean Platelet Volume 11.7 FL (9.6-12.0); Monocytes % 7.6 % (1.7-12.7); Neutrophils % 72.6 % (38.7-73.9); Platelet Count 150 T/CUMM (130-400); Red Blood Count 2.95 MC/CUMM (3.8-5.5); Red Cell Distribution Width 16.4 % (9.3-17.3); White Blood Count 8.1 T/CUMM (4-12)
[2020-12-31 08:48] LABS: Calcium 7.4 MG/DL (8.5-10.1); Osmolality,Calculated 281.3 MOS/KG (273-304); Potassium 4.1 MMOL/L (3.5-5.1)
[2020-12-31 09:08] LABS: Hypochromasia 1+; Microcytosis 1+
[2020-12-31] MEDS: ASPIRIN CHEW 81 MG TABLET PO SCH (10:43)
[2020-12-31] MEDS: DULoxetine 30 MG CAPSULE PO SCH (10:43)
[2020-12-31] MEDS: ISOSORBIDE MONONITRATE 20 MG TABLET PO SCH ×3 (10:43→20:57)
[2020-12-31] MEDS: LACTOBACILLUS ACIDOPHILUS/BULGARICUS CAPLET PO SCH (10:43)
[2020-12-31] MEDS: lisinopriL 20 MG TABLET PO SCH ×2 (10:43→20:56)
[2020-12-31] MEDS: FOLIC ACID 1 MG TABLET PO SCH ×2 (10:44→20:56)
[2020-12-31] MEDS: carvediloL 6.25 MG TABLET PO SCH ×2 (10:44→20:57)
[2020-12-31] MEDS: traMADol 50 MG TABLET PO PRN (10:44)
[2020-12-31] MEDS: BACLOFEN 10 MG TABLET PO SCH ×2 (10:44→20:56)
[2020-12-31] MEDS: CARBIDOPA/LEVODOPA 25-100 MG TABLET PO SCH ×2 (10:44→16:06)
[2020-12-31] MEDS: ATORVASTATIN 40 MG TABLET PO SCH (10:44)
[2020-12-31] MEDS: metroNIDAZOLE 500 MG TABLET PO SCH (10:44)
[2020-12-31] MEDS: ENOXAPARIN 40 MG/0.4 ML SYRINGE SUBCUT SCH (10:45)
[2020-12-31] MEDS: PANTOPRAZOLE 40 MG VIAL IV SCH (10:45)
[2020-12-31] MEDS: CHOLESTYRAMINE/ASPARTAME 4 GM PACK PO SCH (10:45)
[2020-12-31] MEDS: DESITIN 4OZ/NYSTATIN 15 GRAM MIXTURE PASTE TOP SCH ×3 (10:46→21:07)
[2020-12-31] MEDS: CLOPIDOGREL 75 MG TABLET PO SCH (10:47)
[2020-12-31] MEDS: QUEtiapine 25 MG TABLET PO SCH (20:56)
[2020-12-31] MEDS: LINEZOLID 600 MG TABLET PO SCH (20:56)
[2020-12-31] MEDS: TAMSULOSIN 0.4 MG CAPSULE PO SCH (20:57)
[2021-01-01] MEDS: VANCOMYCIN 50 MG/ML 60 ML/BOTTLE PO SCH ×3 (00:30→13:27)
[2021-01-01] MEDS: BACLOFEN 10 MG TABLET PO SCH (09:45)
[2021-01-01] MEDS: FOLIC ACID 1 MG TABLET PO SCH (09:45)
[2021-01-01] MEDS: carvediloL 6.25 MG TABLET PO SCH (09:46)
[2021-01-01] MEDS: ATORVASTATIN 40 MG TABLET PO SCH (09:46)
[2021-01-01] MEDS: LINEZOLID 600 MG TABLET PO SCH (09:46)
[2021-01-01] MEDS: CLOPIDOGREL 75 MG TABLET PO SCH (09:46)
[2021-01-01] MEDS: ASPIRIN CHEW 81 MG TABLET PO SCH (09:46)
[2021-01-01] MEDS: LACTOBACILLUS ACIDOPHILUS/BULGARICUS CAPLET PO SCH (09:46)
[2021-01-01] MEDS: lisinopriL 20 MG TABLET PO SCH (09:46)
[2021-01-01] MEDS: ENOXAPARIN 40 MG/0.4 ML SYRINGE SUBCUT SCH (09:47)
[2021-01-01] MEDS: ISOSORBIDE MONONITRATE 20 MG TABLET PO SCH (09:47)
[2021-01-01] MEDS: CHOLESTYRAMINE/ASPARTAME 4 GM PACK PO SCH (09:48)
[2021-01-01] MEDS: PANTOPRAZOLE 40 MG VIAL IV SCH (09:48)
[2021-01-01] MEDS: INSULIN REGULAR 100 UNIT/ML SUBCUT SCH ×2 (09:49→12:19)
[2021-01-01] MEDS: DESITIN 4OZ/NYSTATIN 15 GRAM MIXTURE PASTE TOP SCH (10:03)
[2021-01-01 12:26] VITALS: BP 148/55
[2021-01-01] MEDS: BETHANECHOL 10 MG TABLET PO SCH ×2 (13:08→13:28)
== END 2021-01-01 14:36 | disposition home health service (06) | DRG 871 ==
LOC: N.CC 12-22 04:24 → SUATTDRO 12-22 04:24 → N.5E 12-25 15:57
PROVIDERS: ADMIT Internal Medicine; ATTEND Internal Medicine